=== PATIENT | female | born 1950 | race Caucasian/White ===

== ENCOUNTER 2017-01-21 11:05 | Emergency (ER) | payer MEDICARE, OTHER ==
--- NOTE | 2017-01-21 11:36 | EDM.PDOC ---
ED HPI GI/ABDOMINAL - General Chief Complaint: Abdominal Pain Stated Complaint: STOMACH Time Seen by Provider: 01/21/17 11:31 Source of Information: Reports: Patient History Limitations: Reports: No limitations - History of Present Illness INITIAL COMMENTS - FREE TEXT/NARRATIVE: HISTORY AND PHYSICAL: [66-year-old female presenting with abdominal pain for the last 2 weeks] History of Present Illness: [Patient has been taking Nexium much relief. Food intake does not change pain] Review of Systems: As per history of present illness and below otherwise all systems reviewed and negative. Past medical history: As per history of present illness and as reviewed below otherwise noncontributory. Surgical history: As per history of present illness and as reviewed below otherwise noncontributory. Social history: No reported history of drug or alcohol abuse. Family history: As per history of present illness and as reviewed below otherwise noncontributory. Physical exam: Alert and oriented. HEENT: Atraumatic, normocehpalic, pupils reactive, negative for conjunctival pallor or scleral icterus, mucous membranes moist, throat clear, neck supple, nontender, trachea midline. Lungs: Clear to auscultation, breath sounds equal bilaterally, chest non tender. Heart: S1S2, regular, negative for clicks, rubs, or JVD. Abdomen: Soft, nondistended, nontender. Negative for masses or hepatossplenmegaly. Negative for costovertebral tenderness. Pelvis: Stable nontender. Genitourinary: Deferred. Rectal: Deferred Extremities: Atraumatic, negative for cords or calf pain. Neurovascular unremarkable. Neuro: Awake, alert, oriented. Cranial nerves II through XII unremarkable. Cerebellum unremarkable. Motor and sensory unremarkable throughout. Exam nonfocal. Patient improved with the GI cocktail Diagnostics: [CBC CMP UA flat and upright] Therapeutics: [GI Cocktail Impression: [Gastritis] Plan: #1 Carafate a.c. and at bedtime #2 continue with the Nexium daily #3 followup with your provider Flori Chris NP at [facility]/ [facility]] Definitive disposition and diagnosis as appropriate pending reevaluation and review of above. 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) - Related Data Allergies/ADRs: Allergies Allergy/AdvReac Type Severity Reaction Status Date / Time Fish Containing Products Allergy Difficulty Verified 11/28/16 02:17 Breathing Iodine and Iodide Containing Allergy Difficulty Verified 11/28/16 02:17 Produc Breathing Home Meds: Home Meds ALPRAZolam [Alprazolam] 1 tab PO TID 11/28/16 [History] Carvedilol [Carvedilol] 1 tab PO BID 11/28/16 [History] FLUoxetine HCl [Fluoxetine HCl] 1 tab PO DAILY 11/28/16 [History] Triamterene/Hydrochlorothiazid [Triamterene-HCTZ 37.5-25 MG] 1 tab PO DAILY [History] Esomeprazole [NexIUM] 40 mg DAILY 01/21/17 [History] Sucralfate [Carafate] 1 gm PO WITHMEALSANDBED #160 ml 01/21/17 [Rx] Past Medical History HEENT History: Reports: None Cardiovascular History: Reports: High cholesterol, Hypertension Respiratory History: Reports: Asthma, Bronchitis, recurrent Gastrointestinal History: Reports: None Genitourinary History: Reports: None 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 Musculoskeletal History: Reports: Osteoarthritis Neurological History: Reports: None Psychiatric History: Reports: Panic attack Endocrine/Metabolic History: Reports: None Hematologic History: Reports: None Immunologic History: Reports: None Oncologic (Cancer) History: Reports: None Dermatologic History: Reports: None - Infectious Disease History Infectious Disease History: Reports: None - Past Surgical History Head Surgeries/Procedures: Reports: None HEENT Surgical History: Reports: None Cardiovascular Surgical History: Reports: None GI Surgical History: Reports: Cholecystectomy Female Surgical History: Reports: None Endocrine Surgical History: Reports: None Neurological Surgical History: Reports: None Musculoskeletal Surgical History: Reports: None Dermatological Surgical History: Reports: None Social & Family History - Family History Family Medical History: Noncontributory Neurological: Reports: CVA, Other (see below) Other Neurological Family History: runs in the family - Tobacco Use Smoking Status *Q: Never Smoker - Caffeine Use Caffeine Use: Reports: Coffee - Recreational Drug Use Recreational Drug Use: No ED ROS GENERAL - Review of Systems Review Of Systems: ROS reveals no pertinent complaints other than HPI. ED EXAM, GI/ABD - Physical Exam Exam: See Below (see dictation) Course - Vital Signs Last Recorded V/S: Last Vital Signs Temp 36.9 C 01/21/17 11:26 Pulse 81 01/21/17 11:26 Resp 18 01/21/17 11:26 BP 138/73 01/21/17 11:26 Pulse Ox 98 01/21/17 11:26 - Orders/Labs/Meds Orders: Active Orders 24 hr Category Date Time Status Abdomen 2V AP Flat Upright [CR] Stat Exams 01/21/17 11:38 Taken Labs: Laboratory Tests 01/21/17 01/21/17 Range/Units 11:47 11:47 WBC 4.60 (4.0-11.0) K/uL RBC 4.77 (4.30-5.90) M/uL Hgb 13.9 (12.0-16.0) g/dL Hct 43.0 (36.0-46.0) % MCV 90.1 (80.0-98.0) fL MCH 29.1 (27.0-32.0) pg MCHC 32.3 (31.0-37.0) g/dL RDW Std Deviation 48.4 (28.0-62.0) fl RDW Coeff of [place] 15 (11.0-15.0) % Plt Count 210 (150-400) K/uL MPV 11.60 (7.40-12.00) fL Neut % (Auto) 63.3 (48.0-80.0) % Lymph % (Auto) 20.4 (16.0-40.0) % [place] % (Auto) 14.8 (0.0-15.0) % Eos % (Auto) 1.5 (0.0-7.0) % Baso % (Auto) 0.0 (0.0-1.5) % Neut # 2.9 (1.4-5.7) K/uL Lymph # 0.9 (0.6-2.4) K/uL [place] # 0.7 (0.0-0.8) K/uL Eos # 0.1 (0.0-0.7) K/uL Baso # 0.0 (0.0-0.1) K/uL Nucleated RBC % 0.0 /100WBC Nucleated RBCs # 0 K/uL Sodium 139 (136-146) mmol/L Potassium 3.4 L (3.5-5.1) mmol/L Chloride 104 (98-110) mmol/L Carbon Dioxide 23 (21-31) mmol/L BUN 17 (6.0-23.0) mg/dL Creatinine 1.3 (0.6-1.5) mg/dL Est Cr Clr Drug Dosing 41.40 mL/min Estimated GFR (MDRD) 41.0 ml/min Glucose 106 (60-110) mg/dL Calcium 9.4 (8.8-10.8) mg/dL Total Bilirubin 0.9 (0.1-1.5) mg/dL AST 23 (5-40) IU/L ALT 22 (8-54) IU/L Alkaline Phosphatase 88 (40-150) Total Protein 7.6 (6.0-8.0) g/dL Albumin 3.8 (3.4-4.8) g/dL Globulin 3.8 H (2.0-3.5) g/dL Albumin/Globulin Ratio 1.0 L (1.3-2.8) Meds: Medications Discontinued Medications Generic Name Dose Route Start Last Admin Trade Name Freq PRN Reason Stop Dose Admin Al Hydroxide/Mg Hydroxide 15 0 ml 01/21/17 11:38 01/21/17 11:53 ml/ Lidocaine HCl 5 ml PO 01/21/17 11:39 1 each ONETIME ONE Administration Departure - Departure Time of Disposition: 12:51 Disposition: Home, Self-Care 01 Condition: good Clinical Impression: Gastritis Qualifiers: Gastritis type: unspecified gastritis Chronicity: acute Gastritis bleeding: without bleeding Qualified Code(s): K29.00 - Acute gastritis without bleeding Prescriptions: Sucralfate [Carafate] 1 gm PO WITHMEALSANDBED #160 ml Forms: ED Department Discharge Additional Instructions: The following information is given to patients seen in the emergency department who are being discharged to home. This information is to outline your options for follow-up care. We provide all patients seen in our emergency department with a follow-up referral. The need for follow-up, as well as the timing and circumstances, are variable depending upon the specifics of your emergency department visit. If you don't have a primary care physician on staff, we will provide you with a referral. We always advise you to contact your personal physician following an emergency department visit to inform them of the circumstance of the visit and for follow-up with them and/or the need for any referrals to a consulting specialist. The emergency department will also refer you to a specialist when appropriate. This referral assures that you have the opportunity for followup care with a specialist. All of these measure are taken in an effort to provide you with optimal care, which includes your followup. Under all circumstances we always encourage you to contact your private physician who remains a resource for coordinating your care. When calling for followup care, please make the office aware that this follow-up is from your recent emergency room visit. If for any reason you are refused follow-up, please contact the [facility] emergency department at and asked to speak to the emergency department charge nurse. Carafate slurry 1 g before meals and at bedtime Continue with your Nexium daily Follow up with Michelle Chris NP in one week Your medication has been electronically sent per your request to [facility] - My Orders Last 24 Hours: My Active Orders 01/21/17 11:38 Abdomen 2V AP Flat Upright [CR] Stat - Assessment/Plan Last 24 Hours: My Active Orders 01/21/17 11:38 Abdomen 2V AP Flat Upright [CR] Stat
[2017-01-21] MEDS ORDERED: Alum Hydrox/Mag Hydrox/Simeth 15 ML, Lidocaine 2% 5 ML PO ONE ×2 (11:38)
[2017-01-21 13:13] VITALS: BP 122/72
--- NOTE | 2017-01-21 16:51 | CR ---
EXAM DATE: 01/21/17 PATIENT'S AGE: 66 Patient: ELBERT ARROYO Facility: [place], [place] Site . Site : 1950 Study: XRay Abdomen [id number]/9/2017 12:16:43 PM Ordering Physician: Doctor Silveira Final Report: INDICATION: Epigastric pain TECHNIQUE: Abdomen 3 view. COMPARISON: None FINDINGS: Bowel: Bowel pattern is normal. Soft tissues: No sign of free air. No sign of soft tissue mass. No suspicious calcifications. Surgical clips right upper quadrant from prior cholecystectomy. Bones: Degenerative changes involving both hip joints. IMPRESSION: Unremarkable abdomen. Dictated by Mikel Mueller MD @ 01/21/2017 12:22:50 PM Dictated by: Mikel Mueller MD @ 01/21/2017 12:22:55 (Electronic Signature) Report Signed by Proxy and Original Signed Document filed in the Medical Record. [email or web address]
== END 2017-01-21 13:12 | disposition home or self-care (01) ==
LOC: MW.ED 11:05
DX: K29.00 Acute gastritis without bleeding (principal); I10 Essential (primary) hypertension; E78.00 Pure hypercholesterolemia, unspecified; J45.909 Unspecified asthma, uncomplicated; M19.90 Unspecified osteoarthritis, unspecified site; F41.0 Panic disorder [episodic paroxysmal anxiety]; Z90.49 Acquired absence of other specified parts of digestive tract; Z91.013 Allergy to seafood; Z91.041 Radiographic dye allergy status; Z79.899 Other long term (current) drug therapy
CPT/HCPCS: 36415; 74020; 80053; 85025; 99284; A9270; 99283

== ENCOUNTER 2017-01-23 11:27 | Emergency (ER) | payer MEDICARE, OTHER ==
[2017-01-23] MEDS ORDERED: Ondansetron 4 MG Tab.DIS PO ONE (11:50)
--- NOTE | 2017-01-23 11:57 | EDM.PDOC ---
ED HPI GI/ABDOMINAL - General Chief Complaint: Gastrointestinal Problem Stated Complaint: ABD PAIN Time Seen by Provider: 01/23/17 11:27 Source of Information: Reports: Patient History Limitations: Reports: No limitations - History of Present Illness INITIAL COMMENTS - FREE TEXT/NARRATIVE: History of present illness: [] Patient complains of left upper quadrant and epigastric pain. She was seen here on the and diagnosed with gastritis and treated with Carafate she's been taking 1/10th of the dose. Patient also complains of nausea and nonbloody diarrhea. She denies fevers or vomiting. Review of systems: As per history of present illness and below otherwise all systems reviewed and negative. Past medical history: As per history of present illness and as reviewed below otherwise noncontributory. Surgical history: As per history of present illness and as reviewed below otherwise noncontributory. Social history: No reported history of drug or alcohol abuse. Family history: As per history of present illness and as reviewed below otherwise noncontributory. Physical exam: General: Well developed, well nourished in NAD HEENT: Atraumatic, normocephalic, pupils reactive, negative for conjunctival pallor or scleral icterus, mucous membranes moist, throat clear, neck supple, nontender, trachea midline. Lungs: Clear to auscultation, breath sounds equal bilaterally, chest nontender. Heart: S1S2, regular, negative for clicks, rubs, or JVD. Abdomen: Soft, nondistended, nontender. Negative for masses or hepatosplenomegaly. Negative for costovertebral tenderness. Pelvis: Stable nontender. Genitourinary: Deferred. Rectal: Deferred. Extremities: Atraumatic, negative for cords or calf pain. Neurovascular unremarkable. Neuro: Awake, alert, oriented. Cranial nerves II through XII unremarkable. Cerebellum unremarkable. Motor and sensory unremarkable throughout. Exam nonfocal. Diagnostics: [] LFTs and lipase are normal Therapeutics: [] Patient was given 10 mLs of Carafate (instead of the 1 mL she's been takingL Impression: [] Gastritis Plan: [] Take 10 mils of Carafate as directed Zofran for nausea lobe with PMD Definitive disposition and diagnosis as appropriate pending reevaluation and review of above. - Related Data Allergies/ADRs: Allergies Allergy/AdvReac Type Severity Reaction Status Date / Time Fish Containing Products Allergy Difficulty Verified 01/23/17 11:35 Breathing Iodine and Iodide Containing Allergy Difficulty Verified 01/23/17 11:35 Produc Breathing Home Meds: Home Meds ALPRAZolam [Alprazolam] 1 tab PO ASDIRECTED 11/28/16 [History] Carvedilol [Carvedilol] 1 tab PO BID 11/28/16 [History] FLUoxetine HCl [Fluoxetine HCl] 1 tab PO DAILY 11/28/16 [History] Triamterene/Hydrochlorothiazid [Triamterene-HCTZ 37.5-25 MG] 1 tab PO DAILY [History] Esomeprazole [NexIUM] 40 mg PO DAILY 01/21/17 [History] Ondansetron HCl [Zofran] 4 mg PO Q8HR PRN #12 tablet 01/23/17 [Rx] Sucralfate [Carafate] 1 gm PO QID 01/23/17 [History] Past Medical History HEENT History: Reports: None Cardiovascular History: Reports: High cholesterol, Hypertension Respiratory History: Reports: Asthma, Bronchitis, recurrent Gastrointestinal History: Reports: None Genitourinary History: Reports: None 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: Musculoskeletal History: Reports: Osteoarthritis Neurological History: Reports: None Psychiatric History: Reports: Anxiety, Panic attack Endocrine/Metabolic History: Reports: None Hematologic History: Reports: None Immunologic History: Reports: None Oncologic (Cancer) History: Reports: None Dermatologic History: Reports: None - Infectious Disease History Infectious Disease History: Reports: None - Past Surgical History Head Surgeries/Procedures: Reports: None HEENT Surgical History: Reports: None Cardiovascular Surgical History: Reports: None GI Surgical History: Reports: Cholecystectomy Female Surgical History: Reports: None Endocrine Surgical History: Reports: None Neurological Surgical History: Reports: None Dermatological Surgical History: Reports: None Social & Family History - Family History Family Medical History: Noncontributory Neurological: Reports: CVA, Other (see below) Other Neurological Family History: runs in the family - Tobacco Use Smoking Status *Q: Never Smoker - Caffeine Use Caffeine Use: Reports: Coffee - Recreational Drug Use Recreational Drug Use: No ED ROS GENERAL - Review of Systems Review Of Systems: See Below (See history of present illness) ED EXAM, GI/ABD - Physical Exam Exam: See Below (See history of present illness) Course - Vital Signs Last Recorded V/S: Last Vital Signs Temp 36.6 C 01/23/17 11:38 Pulse 67 01/23/17 11:38 Resp 18 01/23/17 11:38 BP 137/74 01/23/17 11:38 Pulse Ox 100 01/23/17 11:38 - Orders/Labs/Meds Labs: Laboratory Tests 01/23/17 Range/Units 12:20 Sodium 139 (136-146) mmol/L Potassium 3.6 (3.5-5.1) mmol/L Chloride 103 (98-110) mmol/L Carbon Dioxide 23 (21-31) mmol/L BUN 17 (6.0-23.0) mg/dL Creatinine 1.1 (0.6-1.5) mg/dL Est Cr Clr Drug Dosing 47.10 mL/min Estimated GFR (MDRD) 49.7 ml/min Glucose 101 (60-110) mg/dL Calcium 9.3 (8.8-10.8) mg/dL Total Bilirubin 0.8 (0.1-1.5) mg/dL AST 26 (5-40) IU/L ALT 30 (8-54) IU/L Alkaline Phosphatase 86 (40-150) Total Protein 7.5 (6.0-8.0) g/dL Albumin 3.8 (3.4-4.8) g/dL Globulin 3.7 H (2.0-3.5) g/dL Albumin/Globulin Ratio 1.0 L (1.3-2.8) Lipase 26 (7-80) U/L Meds: Medications Discontinued Medications Generic Name Dose Route Start Last Admin Trade Name Freq PRN Reason Stop Dose Admin Ondansetron HCl 4 mg 01/23/17 11:50 01/23/17 11:58 Zofran Odt PO 01/23/17 11:51 4 mg ONETIME ONE Administration Departure - Departure Time of Disposition: 13:07 Disposition: Home, Self-Care 01 Condition: good Clinical Impression: Gastritis Qualifiers: Gastritis type: unspecified gastritis Chronicity: acute Gastritis bleeding: without bleeding Qualified Code(s): K29.00 - Acute gastritis without bleeding Prescriptions: Ondansetron HCl [Zofran] 4 mg PO Q8HR PRN #12 tablet PRN Reason: Nausea Forms: ED Department Discharge Additional Instructions: The following information is given to patients seen in the emergency department who are being discharged to home. This information is to outline your options for follow-up care. We provide all patients seen in our emergency department with a follow-up referral. The need for follow-up, as well as the timing and circumstances, are variable depending upon the specifics of your emergency department visit. If you don't have a primary care physician on staff, we will provide you with a referral. We always advise you to contact your personal physician following an emergency department visit to inform them of the circumstance of the visit and for follow-up with them and/or the need for any referrals to a consulting specialist. The emergency department will also refer you to a specialist when appropriate. This referral assures that you have the opportunity for follow-up care with a specialist. All of these measure are taken in an effort to provide you with optimal care, which includes your follow-up. Under all circumstances we always encourage you to contact your private physician who remains a resource for coordinating your care. When calling for follow-up care, please make the office aware that this follow-up is from your recent emergency room visit. If for any reason you are refused follow-up, please contact the [facility] Emergency Department at and asked to speak to the emergency department charge nurse. [facility] [address] [place] [phone]
[2017-01-23 13:28] VITALS: BP 132/70
== END 2017-01-23 13:26 | disposition home or self-care (01) ==
LOC: MW.ED 11:27
DX: K29.00 Acute gastritis without bleeding (principal); E78.00 Pure hypercholesterolemia, unspecified; I10 Essential (primary) hypertension; J45.909 Unspecified asthma, uncomplicated; M19.90 Unspecified osteoarthritis, unspecified site; F41.9 Anxiety disorder, unspecified; Z79.899 Other long term (current) drug therapy; Z90.49 Acquired absence of other specified parts of digestive tract; Z91.013 Allergy to seafood; Z91.041 Radiographic dye allergy status
CPT/HCPCS: 36415; 80053; 83690; 99284; A9270; 99283

== ENCOUNTER 2017-01-24 16:47 | Emergency (ER) | payer MEDICARE, OTHER ==
--- NOTE | 2017-01-24 17:16 | EDM.PDOC ---
ED HPI GI/ABDOMINAL - General Chief Complaint: Gastrointestinal Problem Stated Complaint: PT HAS STOMACH PAINS Time Seen by Provider: 01/24/17 17:16 Source of Information: Reports: Patient History Limitations: Reports: No limitations - History of Present Illness INITIAL COMMENTS - FREE TEXT/NARRATIVE: HISTORY AND PHYSICAL: [66-year-old female presenting with abdominal pain she's been in to the emergency room the last 2 days] History of Present Illness: [Have discussed her medication regimen with her she still is not taking Mylanta 4 times a day as directed SHe is taking Carafate] Review of Systems: As per history of present illness and below otherwise all systems reviewed and negative. Past medical history: As per history of present illness and as reviewed below otherwise noncontributory. Surgical history: As per history of present illness and as reviewed below otherwise noncontributory. Social history: No reported history of drug or alcohol abuse. Family history: As per history of present illness and as reviewed below otherwise noncontributory. Physical exam: Alert and oriented female, continue to question why she is having abdominal pain after multiple episodes of discussing this with her last 2 -Days. HEENT: Atraumatic, normocehpalic, pupils reactive, negative for conjunctival pallor or scleral icterus, mucous membranes moist, throat clear, neck supple, nontender, trachea midline. Lungs: Clear to auscultation, breath sounds equal bilaterally, chest non tender. Heart: S1S2, regular, negative for clicks, rubs, or JVD. Abdomen: Soft, nondistended, tender to epigastric and left upper quadrant. Negative for masses or hepatossplenmegaly. Negative for costovertebral tenderness. Extremities: Atraumatic, negative for cords or calf pain. Neurovascular unremarkable. Neuro: Awake, alert, oriented. Cranial nerves II through XII unremarkable. Cerebellum unremarkable. Motor and sensory unremarkable throughout. Exam nonfocal. Diagnostics: [] Therapeutics: []GI Cocktail Impression: [] Plan: [] Definitive disposition and diagnosis as appropriate pending reevaluation and review of above. Location: other (epigastric/ left UQ) Severity: moderate - Related Data Allergies/ADRs: Allergies Allergy/AdvReac Type Severity Reaction Status Date / Time Fish Containing Products Allergy Difficulty Verified 01/23/17 11:35 Breathing Iodine and Iodide Containing Allergy Difficulty Verified 01/23/17 11:35 Produc Breathing soy Allergy Other Verified 01/24/17 17:19 Home Meds: Home Meds ALPRAZolam [Alprazolam] 1 tab PO ASDIRECTED 11/28/16 [History] Carvedilol [Carvedilol] 1 tab PO BID 11/28/16 [History] FLUoxetine HCl [Fluoxetine HCl] 1 tab PO DAILY 11/28/16 [History] Triamterene/Hydrochlorothiazid [Triamterene-HCTZ 37.5-25 MG] 1 tab PO DAILY [History] Esomeprazole [NexIUM] 40 mg PO DAILY 01/21/17 [History] Ondansetron HCl [Zofran] 4 mg PO Q8HR PRN #12 tablet 01/23/17 [Rx] Sucralfate [Carafate] 1 gm PO QID 01/23/17 [History] Past Medical History HEENT History: Reports: None Cardiovascular History: Reports: High cholesterol, Hypertension Respiratory History: Reports: Asthma, Bronchitis, recurrent Gastrointestinal History: Reports: None Genitourinary History: Reports: None 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: Musculoskeletal History: Reports: Osteoarthritis Neurological History: Reports: None Psychiatric History: Reports: Anxiety, Panic attack Endocrine/Metabolic History: Reports: None Hematologic History: Reports: None Immunologic History: Reports: None Oncologic (Cancer) History: Reports: None Dermatologic History: Reports: None - Infectious Disease History Infectious Disease History: Reports: None - Past Surgical History Head Surgeries/Procedures: Reports: None HEENT Surgical History: Reports: None Cardiovascular Surgical History: Reports: None GI Surgical History: Reports: Cholecystectomy Female Surgical History: Reports: None Endocrine Surgical History: Reports: None Neurological Surgical History: Reports: None Dermatological Surgical History: Reports: None Social & Family History - Family History Family Medical History: Noncontributory Neurological: Reports: CVA, Other (see below) Other Neurological Family History: runs in the family - Tobacco Use Smoking Status *Q: Never Smoker - Caffeine Use Caffeine Use: Reports: Coffee - Recreational Drug Use Recreational Drug Use: No ED ROS GENERAL - Review of Systems Review Of Systems: ROS reveals no pertinent complaints other than HPI. ED EXAM, GI/ABD - Physical Exam Exam: See Below (see dictation) Course - Vital Signs Last Recorded V/S: Last Vital Signs Temp 36.9 C 01/24/17 17:16 Pulse 73 03/12/17 17:16 Resp 18 01/24/17 17:16 BP 138/83 01/24/17 17:16 Pulse Ox 100 01/24/17 17:16 - Orders/Labs/Meds Labs: Laboratory Tests 01/24/17 Range/Units 18:00 Sodium 140 (136-146) mmol/L Potassium 3.3 L (3.5-5.1) mmol/L Chloride 102 (98-110) mmol/L Carbon Dioxide 25 (21-31) mmol/L BUN 15 (6.0-23.0) mg/dL Creatinine 1.1 (0.6-1.5) mg/dL Est Cr Clr Drug Dosing 47.10 mL/min Estimated GFR (MDRD) 49.7 ml/min Glucose 103 (60-110) mg/dL Calcium 9.6 (8.8-10.8) mg/dL Total Bilirubin 0.9 (0.1-1.5) mg/dL AST 24 (5-40) IU/L ALT 30 (8-54) IU/L Alkaline Phosphatase 92 (40-150) Total Protein 8.0 (6.0-8.0) g/dL Albumin 4.0 (3.4-4.8) g/dL Globulin 4.0 H (2.0-3.5) g/dL Albumin/Globulin Ratio 1.0 L (1.3-2.8) Lipase 29 (7-80) U/L Meds: Medications Discontinued Medications Generic Name Dose Route Start Last Admin Trade Name Freq PRN Reason Stop Dose Admin Al Hydroxide/Mg Hydroxide 15 0 ml 01/24/17 17:18 01/24/17 17:28 ml/ Metoclopramide HCl 5 mg/ PO 01/24/17 17:19 1 each Lidocaine HCl 5 ml ONETIME ONE Administration Al Hydroxide/Mg Hydroxide 15 0 ml 01/24/17 18:36 ml/ Metoclopramide HCl 5 mg/ PO 01/24/17 18:37 Lidocaine HCl 5 ml ONETIME ONE Departure - Departure Time of Disposition: 18:42 Disposition: Home, Self-Care 01 Condition: good Clinical Impression: Abdominal pain Qualifiers: Abdominal location: epigastric Qualified Code(s): R10.13 - Epigastric pain Instructions: Abdominal Pain, Adult, [id number] Forms: ED Department Discharge
[2017-01-24] MEDS ORDERED: Alum Hydrox/Mag Hydrox/Simeth 15 ML, Metoclopramide 5 MG, Lidocaine 2% 5 ML PO ONE ×6 (17:18→18:36)
[2017-01-24 19:08] VITALS: BP 136/81
== END 2017-01-24 19:03 | disposition home or self-care (01) ==
LOC: MW.ED 16:47
DX: R10.13 Epigastric pain (principal); R10.12 Left upper quadrant pain; E78.00 Pure hypercholesterolemia, unspecified; I10 Essential (primary) hypertension; J45.909 Unspecified asthma, uncomplicated; M19.90 Unspecified osteoarthritis, unspecified site; F41.9 Anxiety disorder, unspecified; Z79.899 Other long term (current) drug therapy; Z90.49 Acquired absence of other specified parts of digestive tract; Z91.013 Allergy to seafood; Z91.041 Radiographic dye allergy status; Z91.018 Allergy to other foods
CPT/HCPCS: 36415; 80053; 83690; 99283; A9270

== ENCOUNTER 2017-01-28 20:17 | Emergency (ER) | payer MEDICARE, OTHER ==
--- NOTE | 2017-01-28 20:32 | EDM.PDOC ---
ED HPI GI/ABDOMINAL - General Chief Complaint: Abdominal Pain Stated Complaint: PT HAS GASTROSIS Time Seen by Provider: 01/28/17 20:29 Source of Information: Reports: Patient History Limitations: Reports: No limitations - History of Present Illness INITIAL COMMENTS - FREE TEXT/NARRATIVE: HISTORY AND PHYSICAL: [] 66-year-old female presenting with acute epigastric pain more to what she has been having. She has appointment with specialist tomorrow. History of Present Illness: [States she's been taking her medicine as prescribed She is weepy teary-eyed] Review of Systems: As per history of present illness and below otherwise all systems reviewed and negative. Past medical history: As per history of present illness and as reviewed below otherwise noncontributory. Surgical history: As per history of present illness and as reviewed below otherwise noncontributory. Social history: No reported history of drug or alcohol abuse. Family history: As per history of present illness and as reviewed below otherwise noncontributory. Physical exam: Alert with intact questions appropriately HEENT: Atraumatic, normocehpalic, pupils reactive, negative for conjunctival pallor or scleral icterus, mucous membranes moist, throat clear, neck supple, nontender, trachea midline. Lungs: Clear to auscultation, breath sounds equal bilaterally, chest non tender. Heart: S1S2, regular, negative for clicks, rubs, or JVD. Abdomen: Soft, nondistended, tender midepigastric with and without palpation. Negative for masses or hepatossplenmegaly. Negative for costovertebral tenderness. Extremities: Atraumatic, negative for cords or calf pain. Neurovascular unremarkable. Neuro: Awake, alert, oriented. Cranial nerves II through XII unremarkable. Cerebellum unremarkable. Motor and sensory unremarkable throughout. Exam nonfocal. Diagnostics: [] Therapeutics: [GI cocktail with Reglan] Impression: [Gastritis] Plan: [Home continue taking medications as prescribed Make sure you keep appointment tomorrow with the specialist as you need an EGD] Take your Nexium twice daily keep your appointment tomorrow at 11 Definitive disposition and diagnosis as appropriate pending reevaluation and review of above. - Related Data Allergies/ADRs: Allergies Allergy/AdvReac Type Severity Reaction Status Date / Time Fish Containing Products Allergy Difficulty Verified 01/28/17 20:27 Breathing Iodine and Iodide Containing Allergy Difficulty Verified 01/28/17 20:27 Produc Breathing soy Allergy Other Verified 01/28/17 20:27 Home Meds: Home Meds ALPRAZolam [Alprazolam] 1 tab PO ASDIRECTED 11/28/16 [History] Carvedilol [Carvedilol] 1 tab PO BID 11/28/16 [History] FLUoxetine HCl [Fluoxetine HCl] 1 tab PO DAILY 11/28/16 [History] Triamterene/Hydrochlorothiazid [Triamterene-HCTZ 37.5-25 MG] 1 tab PO DAILY [History] Esomeprazole [NexIUM] 40 mg PO DAILY 01/21/17 [History] Ondansetron HCl [Zofran] 4 mg PO Q8HR PRN #12 tablet 01/23/17 [Rx] Sucralfate [Carafate] 1 gm PO QID 01/23/17 [History] Past Medical History HEENT History: Reports: None Cardiovascular History: Reports: High cholesterol, Hypertension Respiratory History: Reports: Asthma, Bronchitis, recurrent Gastrointestinal History: Reports: None Genitourinary History: Reports: None 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: Musculoskeletal History: Reports: Osteoarthritis Neurological History: Reports: None Psychiatric History: Reports: Anxiety, Panic attack Endocrine/Metabolic History: Reports: None Hematologic History: Reports: None Immunologic History: Reports: None Oncologic (Cancer) History: Reports: None Dermatologic History: Reports: None - Infectious Disease History Infectious Disease History: Reports: None - Past Surgical History Head Surgeries/Procedures: Reports: None HEENT Surgical History: Reports: None Cardiovascular Surgical History: Reports: None GI Surgical History: Reports: Cholecystectomy Female Surgical History: Reports: None Endocrine Surgical History: Reports: None Neurological Surgical History: Reports: None Dermatological Surgical History: Reports: None Social & Family History - Family History Family Medical History: Noncontributory Neurological: Reports: CVA, Other (see below) Other Neurological Family History: runs in the family - Tobacco Use Smoking Status *Q: Never Smoker - Caffeine Use Caffeine Use: Reports: Coffee - Recreational Drug Use Recreational Drug Use: No ED ROS GENERAL - Review of Systems Review Of Systems: ROS reveals no pertinent complaints other than HPI. ED EXAM, GI/ABD - Physical Exam Exam: See Below (see dictation) Course - Vital Signs Last Recorded V/S: Last Vital Signs Temp 36.9 C 01/28/17 20:29 Pulse 86 01/28/17 20:29 Resp 16 01/28/17 20:29 BP 155/72 H 01/28/17 20:29 Pulse Ox 96 01/28/17 20:29 - Orders/Labs/Meds Meds: Medications Discontinued Medications Generic Name Dose Route Start Last Admin Trade Name Salome PRN Reason Stop Dose Admin Al Hydroxide/Mg Hydroxide 15 0 ml 01/28/17 20:28 01/28/17 20:43 ml/ Metoclopramide HCl 5 mg/ PO 01/28/17 20:29 25 each Lidocaine HCl 5 ml ONETIME ONE Administration Famotidine 20 mg 01/28/17 20:32 01/28/17 20:46 Pepcid PO 01/28/17 20:33 Not Given ONETIME ONE Departure - Departure Time of Disposition: 21:22 Disposition: Home, Self-Care 01 Condition: good Clinical Impression: Gastroenteritis Forms: ED Department Discharge Additional Instructions: The following information is given to patients seen in the emergency department who are being discharged to home. This information is to outline your options for follow-up care. We provide all patients seen in our emergency department with a follow-up referral. The need for follow-up, as well as the timing and circumstances, are variable depending upon the specifics of your emergency department visit. If you don't have a primary care physician on staff, we will provide you with a referral. We always advise you to contact your personal physician following an emergency department visit to inform them of the circumstance of the visit and for follow-up with them and/or the need for any referrals to a consulting specialist. The emergency department will also refer you to a specialist when appropriate. This referral assures that you have the opportunity for followup care with a specialist. All of these measure are taken in an effort to provide you with optimal care, which includes your followup. Under all circumstances we always encourage you to contact your private physician who remains a resource for coordinating your care. When calling for followup care, please make the office aware that this follow-up is from your recent emergency room visit. If for any reason you are refused follow-up, please contact the [facility] emergency department at and asked to speak to the emergency department charge nurse.
[2017-01-28] MEDS: Alum Hydrox/Mag Hydrox/Simeth 15 ML, Metoclopramide 5 MG, Lidocaine 2% 5 ML PO ONE ×3 (20:43)
[2017-01-28] MEDS: Famotidine 20 MG Tab PO ONE (20:46)
[2017-01-28 22:18] VITALS: BP 133/62
== END 2017-01-28 21:42 | disposition home or self-care (01) ==
LOC: MW.ED 20:17
DX: K29.70 Gastritis, unspecified, without bleeding (principal); E78.00 Pure hypercholesterolemia, unspecified; I10 Essential (primary) hypertension; M19.90 Unspecified osteoarthritis, unspecified site; Z88.6 Allergy status to analgesic agent; Z88.8 Allergy status to other drugs, medicaments and biological substances; Z91.013 Allergy to seafood; Z79.899 Other long term (current) drug therapy; Z90.89 Acquired absence of other organs; Z98.890 Other specified postprocedural states
CPT/HCPCS: 99283; A9270

== ENCOUNTER → 2017-01-29 | Outpatient (CLI) | payer MEDICARE, OTHER | LOC: MW.CHGS 08:00 | PROVIDERS: ATTEND Surgery | DX: R10.9 Unspecified abdominal pain (principal); R19.4 Change in bowel habit | CPT/HCPCS: 99204 ==

== ENCOUNTER 2017-02-25 18:55 | Emergency (ER) | payer MEDICARE, OTHER ==
[2017-02-25] MEDS ORDERED: Sodium Chloride 0.9% 1,000 ML IV ONE (19:38)
[2017-02-25] MEDS ORDERED: Pantoprazole 40 MG Vial IVPUSH ONE (19:38)
[2017-02-25] MEDS ORDERED: LORazepam 1 MG Tab PO ONE (19:39)
[2017-02-25] MEDS ORDERED: Ketorolac 30 MG/ML SDV IVPUSH ONE (19:39)
[2017-02-25] MEDS ORDERED: Sodium Chloride 0.9% 10 ML Syringe FLUSH PRN (19:39)
[2017-02-25] MEDS ORDERED: Alum Hydrox/Mag Hydrox/Simeth 15 ML, Metoclopramide 5 MG, Lidocaine 2% 5 ML PO ONE ×3 (19:39)
[2017-02-25] MEDS ORDERED: Sodium Chloride 0.9% 2.5 ML Syringe FLUSH PRN (19:39)
--- NOTE | 2017-02-25 19:46 | EDM.PDOC ---
ED HPI GENERAL MEDICAL PROBLEM - General Chief Complaint: Gastrointestinal Problem Stated Complaint: STOMACH PAIN Time Seen by Provider: 02/25/17 19:30 - History of Present Illness INITIAL COMMENTS - FREE TEXT/NARRATIVE: HISTORY AND PHYSICAL: History of present illness: The patient is a 66-year-old female who has been in the emergency department here 4 prior times in January with epigastric pain and who underwent an endoscopy with an MD in [facility] 2 weeks ago which she was told was relatively normal and represents tonight with epigastric/mid upper abdominal complaints which is similar to all of her prior visits. According to the patient she was scheduled to have her endoscopy here and opted to do it in [place] and she has not discussed her symptoms with the network account manager there. She has a history of a cholecystectomy as well as anxiety and was supposed to have a colonoscopy performed as well but due to a low potassium that had to be rescheduled. Patient states that she has had 2-3 loose stools before and after the endoscopy and that is not new and the stools are not black or bloody. She said she had the pain both before the endoscopy as well as after but today it seemed worse. She bought [id number] Gaviscon but has not tried it. She says she's been eating and drinking but not very much due to the discomfort. She has no lower abdominal pain no flank pain no chest pain or shortness of breath no fevers chills nausea or vomiting. Review of systems: As per history of present illness and below otherwise all systems reviewed and negative. Past medical history: As per history of present illness and as reviewed below otherwise noncontributory. Surgical history: As per history of present illness and as reviewed below otherwise noncontributory. Social history: No reported history of drug or alcohol abuse. Family history: As per history of present illness and as reviewed below otherwise noncontributory. Physical exam: General: Well-developed well-nourished female who is anxious in the room and tearful but is nontoxic and speaking clearly and easily. She moves without difficulty. HEENT: Atraumatic, normocephalic, pupils reactive, negative for conjunctival pallor or scleral icterus, mucous membranes moist, throat clear, neck supple, nontender, trachea midline. Lungs: Clear to auscultation, breath sounds equal bilaterally, chest nontender. Heart: S1S2, regular, negative for clicks, rubs, or JVD. Abdomen: Soft, nondistended, there are hypoactive bowel sounds and there is tenderness just above the umbilicus on deep palpation without rebound or guarding and the remainder of the abdomen exam is within normal limits without tenderness rebound or guarding. Negative for masses or hepatosplenomegaly. Negative for costovertebral tenderness. Pelvis: Stable nontender. Genitourinary: Deferred. Rectal: Deferred. Extremities: Atraumatic, negative for cords or calf pain. Neurovascular unremarkable. Neuro: Awake, alert, oriented. Cranial nerves II through XII unremarkable. Cerebellum unremarkable. Motor and sensory unremarkable throughout. Exam nonfocal. Diagnostics: CBC CMP amylase lipase UA CT scan of the abdomen and pelvis Therapeutics: IV fluids Toradol Protonix GI cocktail Ativan Patient and family at bedside were aware of all testing results and the patient feels much improved. I've advised to avoid caffeine and to push potassium rich foods. I also advised her to call her network account manager tomorrow to seek advice on care plan. I offered the patient medications for home and she has declined. I've also advised her to take no [id number] aspirin nonsteroidals and alleve. Impression: Upper abdominal pain acute on chronic stable Definitive disposition and diagnosis as appropriate pending reevaluation and review of above. Abdominal Pain Score (Numeric/FACES): 8 - Related Data Allergies Allergy/AdvReac Type Severity Reaction Status Date / Time Fish Containing Products Allergy Difficulty Verified 02/25/17 19:00 Breathing Iodine and Iodide Containing Allergy Difficulty Verified 02/25/17 19:00 Produc Breathing soy Allergy Difficulty Verified 02/25/17 19:00 Breathing shelfish derived products Allergy Hives Uncoded 02/25/17 19:29 Home Meds: Home Meds Carvedilol [Carvedilol] 3.125 mg PO BID 11/28/16 [History] FLUoxetine HCl [Fluoxetine HCl] 40 mg PO DAILY 11/28/16 [History] Sucralfate [Carafate] 1 gm PO QID PRN 01/23/17 [History] ALPRAZolam [Xanax] 0.5 mg PO TID 02/25/17 [History] Albuterol [Ventolin HFA] 2 puff INH Q4HR PRN 02/25/17 [History] Mag Hydrox/Al Hydrox/Simeth [Maalox Maximum Strength Susp] 30 ml PO DAILY PRN [History] Ondansetron HCl [Zofran] 4 mg PO Q6HR PRN 02/25/17 [History] Pantoprazole Sodium [Protonix] 40 mg PO DAILY 02/25/17 [History] busPIRone [Buspar] 5 mg PO BID 02/25/17 [History] Past Medical History HEENT History: Reports: None Cardiovascular History: Reports: High cholesterol, Hypertension Respiratory History: Reports: Asthma, Bronchitis, recurrent Gastrointestinal History: Reports: None Genitourinary History: Reports: None 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: Musculoskeletal History: Reports: Osteoarthritis Neurological History: Reports: None Psychiatric History: Reports: Anxiety, Panic attack Endocrine/Metabolic History: Reports: None Hematologic History: Reports: None Immunologic History: Reports: None Oncologic (Cancer) History: Reports: None Dermatologic History: Reports: None - Infectious Disease History Infectious Disease History: Reports: Chicken pox - Past Surgical History Head Surgeries/Procedures: Reports: None HEENT Surgical History: Reports: None Cardiovascular Surgical History: Reports: None GI Surgical History: Reports: Cholecystectomy Female Surgical History: Reports: None Endocrine Surgical History: Reports: None Neurological Surgical History: Reports: None Dermatological Surgical History: Reports: None Social & Family History - Family History Family Medical History: Noncontributory Neurological: Reports: CVA, Other (see below) Other Neurological Family History: runs in the family - Tobacco Use Smoking Status *Q: Never Smoker Second Hand Smoke Exposure: No - Caffeine Use Caffeine Use: Reports: None - Recreational Drug Use Recreational Drug Use: No ED ROS GENERAL - Review of Systems Review Of Systems: ROS reveals no pertinent complaints other than HPI. ED EXAM, GENERAL - Physical Exam Exam: See Below (See dictation) Course - Vital Signs Last Recorded V/S: Last Vital Signs Temp 36.6 C 02/25/17 19:01 Pulse 73 02/25/17 19:01 Resp 17 02/25/17 19:01 BP 139/66 02/25/17 19:01 Pulse Ox 96 02/25/17 19:01 - Orders/Labs/Meds Orders: Active Orders 24 hr Category Date Time Status Abdomen Pelvis wo Cont [CT] Stat Exams 02/25/17 19:38 Taken Sodium Chloride 0.9% [Saline Flush] Med 02/25/17 19:39 Active 10 ml FLUSH ASDIRECTED PRN Sodium Chloride 0.9% [Saline Flush] Med 02/25/17 19:39 Active 2.5 ml FLUSH ASDIRECTED PRN Saline Lock Insert [OM.PC] Stat Oth 02/25/17 19:38 Ordered Medication Orders Sodium Chloride (Saline Flush) 10 ml FLUSH ASDIRECTED PRN PRN Reason: Keep Vein Open Sodium Chloride (Saline Flush) 2.5 ml FLUSH ASDIRECTED PRN PRN Reason: Keep Vein Open Labs: Laboratory Tests 02/25/17 02/25/17 Range/Units 20:02 20:02 WBC 5.16 (4.0-11.0) K/uL RBC 4.17 L (4.30-5.90) M/uL Hgb 12.1 (12.0-16.0) g/dL Hct 37.9 (36.0-46.0) % MCV 90.9 (80.0-98.0) fL MCH 29.0 (27.0-32.0) pg MCHC 31.9 (31.0-37.0) g/dL RDW Std Deviation 51.0 (28.0-62.0) fl RDW Coeff of [place] 15 (11.0-15.0) % Plt Count 227 (150-400) K/uL MPV 11.30 (7.40-12.00) fL Neut % (Auto) 51.3 (48.0-80.0) % Lymph % (Auto) 34.9 (16.0-40.0) % [place] % (Auto) 10.1 (0.0-15.0) % Eos % (Auto) 3.3 (0.0-7.0) % Baso % (Auto) 0.4 (0.0-1.5) % Neut # (Auto) 2.7 (1.4-5.7) K/uL Lymph # (Auto) 1.8 (0.6-2.4) K/uL [place] # (Auto) 0.5 (0.0-0.8) K/uL Eos # (Auto) 0.2 (0.0-0.7) K/uL Baso # (Auto) 0.0 (0.0-0.1) K/uL Nucleated RBC % 0.0 /100WBC Nucleated RBCs # 0 K/uL Sodium 142 (136-146) mmol/L Potassium 3.2 L (3.5-5.1) mmol/L Chloride 108 (98-110) mmol/L Carbon Dioxide 24 (21-31) mmol/L BUN 8 (6.0-23.0) mg/dL Creatinine 0.8 (0.6-1.5) mg/dL Est Cr Clr Drug Dosing 64.76 mL/min Estimated GFR (MDRD) > 60.0 ml/min Glucose 97 (60-110) mg/dL Calcium 8.8 (8.8-10.8) mg/dL Total Bilirubin 0.7 (0.1-1.5) mg/dL AST 21 (5-40) IU/L ALT 19 (8-54) IU/L Alkaline Phosphatase 72 (40-150) Total Protein 6.8 (6.0-8.0) g/dL Albumin 3.3 L (3.4-4.8) g/dL Globulin 3.5 (2.0-3.5) g/dL Albumin/Globulin Ratio 0.9 L (1.3-2.8) Amylase 44 (10-90) U/L Lipase 19 (7-80) U/L Meds: Medications Generic Name Dose Route Start Last Admin Trade Name Freq PRN Reason Stop Dose Admin Sodium Chloride 10 ml 02/25/17 19:39 Saline Flush FLUSH ASDIRECTED PRN Keep Vein Open Sodium Chloride 2.5 ml 02/25/17 19:39 Saline Flush FLUSH ASDIRECTED PRN Keep Vein Open Discontinued Medications Generic Name Dose Route Start Last Admin Trade Name Salome PRN Reason Stop Dose Admin Al Hydroxide/Mg Hydroxide 15 0 ml 02/25/17 19:39 02/25/17 20:30 ml/ Metoclopramide HCl 5 mg/ PO 02/25/17 19:40 15 each Lidocaine HCl 5 ml ONETIME ONE Administration Sodium Chloride 1,000 mls @ 999 mls/hr 02/25/17 19:38 02/25/17 20:32 Normal Saline IV 02/25/17 20:38 999 mls/hr STAT ONE Administration Ketorolac Tromethamine 30 mg 02/25/17 19:39 02/25/17 20:32 Toradol IVPUSH 02/25/17 19:40 30 mg ONETIME ONE Administration Lorazepam 1 mg 02/25/17 19:39 02/25/17 20:31 Ativan PO 02/25/17 19:40 1 mg ONETIME ONE Administration Pantoprazole Sodium 80 mg 02/25/17 19:38 02/25/17 20:32 Protonix Iv IVPUSH 02/25/17 19:39 80 mg .BOLUS ONE Administration Potassium Chloride 40 meq 02/25/17 21:00 Klor-Con M20 PO 02/25/17 21:01 ONETIME ONE Departure - Departure Time of Disposition: 21:05 Disposition: Home, Self-Care 01 Condition: good Clinical Impression: Abdominal pain, Chronic abdominal pain Referrals: PCP,None [Primary Care Provider] - Forms: ED Department Discharge Additional Instructions: The following information is given to patients seen in the emergency department who are being discharged to home. This information is to outline your options for follow-up care. We provide all patients seen in our emergency department with a follow-up referral. The need for follow-up, as well as the timing and circumstances, are variable depending upon the specifics of your emergency department visit. If you don't have a primary care physician on staff, we will provide you with a referral. We always advise you to contact your personal physician following an emergency department visit to inform them of the circumstance of the visit and for follow-up with them and/or the need for any referrals to a consulting specialist. The emergency department will also refer you to a specialist when appropriate. This referral assures that you have the opportunity for followup care with a specialist. All of these measure are taken in an effort to provide you with optimal care, which includes your followup. Under all circumstances we always encourage you to contact your private physician who remains a resource for coordinating your care. When calling for followup care, please make the office aware that this follow-up is from your recent emergency room visit. If for any reason you are refused follow-up, please contact the [facility] emergency department at and ask to speak to the emergency department charge nurse. [facility] Primary care- Internal Medicine and Family [address] [address] [place] [address] [facility] [place] [address] Please avoid caffeine and spicy foods and eat more potassium rich foods. Please use the medication you have at home for any discomfort and please call your network account manager in [place] tomorrow to advise him/her of your problems and seek advice. He can also followup with your provider at [place] or with one of our family keep your appointment on Wednesday with your provider at [place] if you prefer to wait. Return to ER as needed and as discussed - My Orders Last 24 Hours: My Active Orders 02/25/17 19:38 Abdomen Pelvis wo Cont [CT] Stat Saline Lock Insert [OM.PC] Stat 02/25/17 19:39 Sodium Chloride 0.9% [Saline Flush] 10 ml FLUSH ASDIRECTED PRN Sodium Chloride 0.9% [Saline Flush] 2.5 ml FLUSH ASDIRECTED PRN - Assessment/Plan Last 24 Hours: My Active Orders 02/25/17 19:38 Abdomen Pelvis wo Cont [CT] Stat Saline Lock Insert [OM.PC] Stat 02/25/17 19:39 Sodium Chloride 0.9% [Saline Flush] 10 ml FLUSH ASDIRECTED PRN Sodium Chloride 0.9% [Saline Flush] 2.5 ml FLUSH ASDIRECTED PRN
[2017-02-25 20:39] LABS: CHLORIDE,CL 108 mmol/L (98-110); SODIUM,NA 142 mmol/L (136-146)
[2017-02-25] MEDS ORDERED: Potassium Chloride 20 MEQ Tab.ER PO ONE (21:00)
[2017-02-26 01:07] VITALS: BP 133/88
--- NOTE | 2017-02-26 11:25 | CT ---
EXAM DATE: 02/25/17 PATIENT'S AGE: 66 Patient: ELBERT ARROYO Facility: [place], [place] Site . Site : 1950 Study: CT Abdomen/Pelvis [id number]/13/2017 8:34:07 PM Ordering Physician: Jeaneth Mann Final Report: INDICATION: Upper abdominal pain. Patient had endoscopy 2 weeks ago with polyps removed. CT ABDOMEN AND PELVIS WITHOUT CONTRAST TECHNIQUE: Multidetector CT imaging was performed through the abdomen and pelvis without intravenous contrast administration. Coronal and sagittal reconstructions were generated. COMPARISON: None. FINDINGS: Lower chest: Small right pleural effusion and associated minimal compressive atelectasis at the right lung base. Liver: Within normal limits. Gallbladder and bile ducts: Status post cholecystectomy. No biliary dilation identified. Pancreas: Unremarkable. Spleen: Normal. Adrenals: No nodules or masses. Kidneys, ureters, and urinary bladder: No renal masses or hydronephrosis. No bladder mass or definite wall thickening. Gastrointestinal tract: Normal caliber bowel without wall thickening. The appendix is normal. Vascular structures: Normal caliber abdominal aorta with mild atherosclerotic calcification. Peritoneum: No free air, abscess, or significant free fluid. Lymph nodes: No pathologically enlarged nodes identified. Reproductive organs: Small calcifications in the uterine fundus likely representing degenerated fibroids. Bones: Mild multilevel spondylosis. IMPRESSION: 1. No acute intra-abdominal abnormality identified. No cause for the patient`s symptoms is evident. 2. Small right pleural effusion. 3. Status post cholecystectomy. 4. Additional nonacute findings as detailed above. TOMASZ MÉNDEZ MD [employer] Dictated by Mukesh Méndez MD @ 02/25/2017 8:45:04 PM Dictated by: Mukesh Méndez MD @ 02/25/2017 20:46:11 (Electronic Signature) Report Signed by Proxy and Original Signed Document filed in the Medical Record. [facility]
== END 2017-02-25 21:31 | disposition home or self-care (01) ==
LOC: MW.ED 18:55
DX: R10.13 Epigastric pain (principal); F41.9 Anxiety disorder, unspecified; E78.00 Pure hypercholesterolemia, unspecified; I10 Essential (primary) hypertension; J45.909 Unspecified asthma, uncomplicated; M19.90 Unspecified osteoarthritis, unspecified site; Z90.49 Acquired absence of other specified parts of digestive tract; Z91.013 Allergy to seafood; Z88.8 Allergy status to other drugs, medicaments and biological substances; Z79.899 Other long term (current) drug therapy
CPT/HCPCS: 36415; 74176; 80053; 82150; 83690; 85025; 96361; 96374; 96375; 99284; A9270; C9113; J1885; J7040

== ENCOUNTER 2017-03-02 18:36 | Emergency (ER) | payer MEDICARE, OTHER ==
[2017-03-02] MEDS ORDERED: LORazepam 2 MG/ML MDV IM ONE (19:27)
--- NOTE | 2017-03-02 19:34 | EDM.PDOC ---
ED HPI GENERAL MEDICAL PROBLEM - General Chief Complaint: Behavioral/Psych Stated Complaint: MEMORY Time Seen by Provider: 03/02/17 19:13 - History of Present Illness INITIAL COMMENTS - FREE TEXT/NARRATIVE: HISTORY AND PHYSICAL: History of present illness: Patient is a 66-year-old female with a well known history to the emergency department of subacute/chronic, pain for which she has been worked up repeatedly old here and at other institutions. She is a known history of anxiety and has presented before to see me with anxiety being a component of her complaints. She is been prescribed Xanax 0.5mg TID for home by her provider and she states that she only takes it when she needs it rather than as prescribed. She saw her provider at [facility] yesterday for followup of her abdominal issues and stated to her at that time that she was having tearfulness and feeling like her emotions are all confused. She denies any memory issues with me but states that her emotions are jumbled up, she is not confused out what's going on in the world. She knows where she is and how to get around and she does not feel like that is a problem. She has no motor or sensory changes no recent falls no headaches and no other systemic complaints. She actually declined that she is having any abdominal pain right now. She says she just feels that her emotions are out of control and she can't stop crying. She discussed this with her provider yesterday who is attempting to try to get her into counseling and the patient plans on going to [facility] in the morning to do an intake to try to streamline that process. The patient states she took one half of a tablet of the Xanax at approximately 2 PM per providers instructions but when I asked her about taking her regular dosing 3 times a day of the full tablet she says she did not take any earlier at all. The patient denies any suicidal ideation and when I even mentioned potential inpatient evaluation she was very adamant that that was not an issue. Review of systems: As per history of present illness and below otherwise all systems reviewed and negative. Past medical history: As per history of present illness and as reviewed below otherwise noncontributory. Surgical history: As per history of present illness and as reviewed below otherwise noncontributory. Social history: No reported history of drug or alcohol abuse. Family history: As per history of present illness and as reviewed below otherwise noncontributory. Physical exam: General: Well-developed well-nourished female who is nontoxic and tearful on my evaluation with speaking clearly and easily is not exhibiting any signs of any cognitive deficits HEENT: Atraumatic, normocephalic, pupils reactive, negative for conjunctival pallor or scleral icterus, mucous membranes moist, throat clear, neck supple, nontender, trachea midline. Lungs: Clear to auscultation, breath sounds equal bilaterally, chest nontender. Heart: S1S2, regular, negative for clicks, rubs, or JVD. Abdomen: Soft, nondistended, nontender. NABS Psych: The patient seems tearful but not grossly depressed and very anxious. She is forthcoming about her problems but seems to have issues with articulating why she is tearful. She is not exhibiting any suicidal or homicidal ideation Genitourinary: Deferred. Rectal: Deferred. Extremities: Atraumatic, negative for cords or calf pain. Neurovascular unremarkable. Neuro: Awake, alert, oriented. Cranial nerves II through XII unremarkable. Cerebellum unremarkable. Motor and sensory unremarkable throughout. Exam nonfocal. Diagnostics: [] Therapeutics: Ativan IM I Again discussed with the patient that she needs to go to [facility] in the morning and start the process of getting counseling. I would be happy to give her something here to help get her through the evening but that she should be taking her prescription as prescribed rather than when necessary. She states understanding and I've advised her that if anything changes that she is welcome to return here. I have offered her metabolic workup and CT and she declines at this time as she has had labs done recently and she is not exhibiting any stroke symptoms.. She understands that I cannot offer her any outpatient connection other than what she has and that she will have to proceed tomorrow morning to pursue that herself. She is here with her Impression: Anxiety/emotional issues Definitive disposition and diagnosis as appropriate pending reevaluation and review of above. - Related Data Allergies Allergy/AdvReac Type Severity Reaction Status Date / Time Fish Containing Products Allergy Difficulty Verified 03/02/17 18:57 Breathing Iodine and Iodide Containing Allergy Difficulty Verified 03/02/17 18:57 Produc Breathing soy Allergy Difficulty Verified 03/02/17 18:57 Breathing shelfish derived products Allergy Hives Uncoded 03/02/17 18:57 Home Meds: Home Meds Carvedilol [Carvedilol] 3.125 mg PO BID 11/28/16 [History] FLUoxetine HCl [Fluoxetine HCl] 40 mg PO DAILY 11/28/16 [History] Sucralfate [Carafate] 1 gm PO QID PRN 01/23/17 [History] ALPRAZolam [Xanax] 0.5 mg PO TID 02/25/17 [History] Albuterol [Ventolin HFA] 2 puff INH Q4HR PRN 02/25/17 [History] Mag Hydrox/Al Hydrox/Simeth [Maalox Maximum Strength Susp] 30 ml PO DAILY PRN [History] Ondansetron HCl [Zofran] 4 mg PO Q6HR PRN 02/25/17 [History] Pantoprazole Sodium [Protonix] 40 mg PO DAILY 02/25/17 [History] busPIRone [Buspar] 5 mg PO BID 02/25/17 [History] Past Medical History HEENT History: Reports: None Cardiovascular History: Reports: High cholesterol, Hypertension Respiratory History: Reports: Asthma, Bronchitis, recurrent Gastrointestinal History: Reports: None Genitourinary History: Reports: None 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: Musculoskeletal History: Reports: Osteoarthritis Neurological History: Reports: None Psychiatric History: Reports: Anxiety, Panic attack Endocrine/Metabolic History: Reports: None Hematologic History: Reports: None Immunologic History: Reports: None Oncologic (Cancer) History: Reports: None Dermatologic History: Reports: None - Infectious Disease History Infectious Disease History: Reports: Chicken pox - Past Surgical History Head Surgeries/Procedures: Reports: None HEENT Surgical History: Reports: None Cardiovascular Surgical History: Reports: None GI Surgical History: Reports: Cholecystectomy Female Surgical History: Reports: None Endocrine Surgical History: Reports: None Neurological Surgical History: Reports: None Dermatological Surgical History: Reports: None Social & Family History - Family History Family Medical History: Noncontributory Neurological: Reports: CVA, Other (see below) Other Neurological Family History: runs in the family - Tobacco Use Smoking Status *Q: Never Smoker Second Hand Smoke Exposure: No - Caffeine Use Caffeine Use: Reports: None - Recreational Drug Use Recreational Drug Use: No ED ROS GENERAL - Review of Systems Review Of Systems: ROS reveals no pertinent complaints other than HPI. ED EXAM, GENERAL - Physical Exam Exam: See Below (See dictation) Course - Vital Signs Last Recorded V/S: Last Vital Signs Temp 37.4 C 03/02/17 18:57 Pulse 75 03/02/17 18:57 Resp 18 03/02/17 18:57 BP 163/84 H 03/02/17 18:57 Pulse Ox 98 03/02/17 18:57 - Orders/Labs/Meds Orders: Active Orders 24 hr Category Date Time Status LORazepam [Ativan] Med 03/02/17 19:27 Once 2 mg IM ONETIME ONE Departure - Departure Time of Disposition: 19:34 Disposition: Home, Self-Care 01 Condition: good Clinical Impression: Anxiety Forms: ED Department Discharge Additional Instructions: The following information is given to patients seen in the emergency department who are being discharged to home. This information is to outline your options for follow-up care. We provide all patients seen in our emergency department with a follow-up referral. The need for follow-up, as well as the timing and circumstances, are variable depending upon the specifics of your emergency department visit. If you don't have a primary care physician on staff, we will provide you with a referral. We always advise you to contact your personal physician following an emergency department visit to inform them of the circumstance of the visit and for follow-up with them and/or the need for any referrals to a consulting specialist. The emergency department will also refer you to a specialist when appropriate. This referral assures that you have the opportunity for followup care with a specialist. All of these measure are taken in an effort to provide you with optimal care, which includes your followup. Under all circumstances we always encourage you to contact your private physician who remains a resource for coordinating your care. When calling for followup care, please make the office aware that this follow-up is from your recent emergency room visit. If for any reason you are refused follow-up, please contact the [facility] emergency department at and ask to speak to the emergency department charge nurse. [address] [place] [address] Please take your Xanax as prescribed per your provider from [facility] and recontact her tomorrow if they're continuing to have issues. Please go to [facility] in the morning as we discussed 2 do an intake with them and to help a connection for counseling. Return to ER as needed and as discussed - My Orders Last 24 Hours: My Active Orders 03/02/17 19:27 LORazepam [Ativan] 2 mg IM ONETIME ONE - Assessment/Plan Last 24 Hours: My Active Orders 03/02/17 19:27 LORazepam [Ativan] 2 mg IM ONETIME ONE
[2017-03-02 21:22] VITALS: BP 136/69
== END 2017-03-02 19:51 | disposition home or self-care (01) ==
LOC: MW.ED 18:36
DX: F41.9 Anxiety disorder, unspecified (principal); I10 Essential (primary) hypertension; E78.00 Pure hypercholesterolemia, unspecified; J45.909 Unspecified asthma, uncomplicated; Z90.49 Acquired absence of other specified parts of digestive tract; Z79.899 Other long term (current) drug therapy; Z91.013 Allergy to seafood; Z91.018 Allergy to other foods; Z88.8 Allergy status to other drugs, medicaments and biological substances
CPT/HCPCS: 96372; 99283; J2060; 99284

== ENCOUNTER 2017-03-09 10:17 | Emergency (ER) | payer MEDICARE, OTHER ==
--- NOTE | 2017-03-09 11:10 | EDM.PDOC ---
ED HPI Behavioral Health - General Chief Complaint: Behavioral/Psych Stated Complaint: ANXIETY/DEPRESSION Time Seen by Provider: 03/09/17 10:40 Source of Information: Reports: Patient Exam Limitations: Reports: No limitations - History of Present Illness INITIAL COMMENTS - FREE TEXT/NARRATIVE: Presents with her . The patient states and her concurs that she was admitted to the [facility] unit on Thursday, March 02, 2017 with a diagnosis of anxiety exacerbation. The patient and her state that she had her medications adjusted but did not receive any counseling there. She was set up however for outpatient counseling here and [place]. She also had has an appointment with her primary care provider Helena Chris on Wednesday, March 15, 2017. Since her discharge on Wednesday she has been unable to do anything at home as she cries the entire day, feels anxious and worries about absolutely everything including simple tasks. She was placed on a regimen of Paxil 10 mg once daily and clonazepam 1 mg at bedtime. - Related Data Allergies Allergy/AdvReac Type Severity Reaction Status Date / Time Fish Containing Products Allergy Difficulty Verified 03/09/17 10:24 Breathing Iodine and Iodide Containing Allergy Difficulty Verified 03/09/17 10:24 Produc Breathing soy Allergy Difficulty Verified 03/09/17 10:24 Breathing shelfish derived products Allergy Hives Uncoded 03/02/17 18:57 Home Medications: Home Meds Carvedilol [Carvedilol] 6.25 mg PO BID 11/28/16 [History] FLUoxetine HCl [Fluoxetine HCl] 40 mg PO DAILY 11/28/16 [History] Sucralfate [Carafate] 1 gm PO QID PRN 01/23/17 [History] Albuterol [Ventolin HFA] 2 puff INH Q4HR PRN 02/25/17 [History] Mag Hydrox/Al Hydrox/Simeth [Maalox Maximum Strength Susp] 30 ml PO DAILY PRN [History] Ondansetron HCl [Zofran] 4 mg PO Q6HR PRN 02/25/17 [History] Pantoprazole Sodium [Protonix] 40 mg PO DAILY 02/25/17 [History] busPIRone [Buspar] 5 mg PO BID 02/25/17 [History] ClonazePAM [KlonoPIN] 1 mg PO DAILY 03/09/17 [History] Esomeprazole Magnesium 40 mg PO DAILY 03/09/17 [History] PARoxetine [Paxil] 10 mg PO DAILY 03/09/17 [History] Potassium Chloride 20 mg PO DAILY 03/09/17 [History] Headache Pain Score (Numeric/FACES): 4 Past Medical History HEENT History: Reports: None Cardiovascular History: Reports: High cholesterol, Hypertension Respiratory History: Reports: Asthma, Bronchitis, recurrent Gastrointestinal History: Reports: None Genitourinary History: Reports: None 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: Musculoskeletal History: Reports: Osteoarthritis Neurological History: Reports: None Psychiatric History: Reports: Anxiety, Panic attack Endocrine/Metabolic History: Reports: None Hematologic History: Reports: None Immunologic History: Reports: None Oncologic (Cancer) History: Reports: None Dermatologic History: Reports: None - Infectious Disease History Infectious Disease History: Reports: Chicken pox - Past Surgical History Head Surgeries/Procedures: Reports: None HEENT Surgical History: Reports: None Cardiovascular Surgical History: Reports: None GI Surgical History: Reports: Cholecystectomy Female Surgical History: Reports: None Endocrine Surgical History: Reports: None Neurological Surgical History: Reports: None Dermatological Surgical History: Reports: None Social & Family History - Family History Family Medical History: Noncontributory Neurological: Reports: CVA, Other (see below) Other Neurological Family History: runs in the family - Tobacco Use Smoking Status *Q: Never Smoker Second Hand Smoke Exposure: No - Caffeine Use Caffeine Use: Reports: None - Recreational Drug Use Recreational Drug Use: No ED ROS GENERAL - Review of Systems Review Of Systems: ROS reveals no pertinent complaints other than HPI. ED EXAM, BEHAVIORAL HEALTH - Physical Exam Exam: See Below Exam Limited By: No limitations General Appearance: alert, moderate distress (crying due to anxiety) Ears: normal external exam Nose: normal inspection Throat/Mouth: Normal inspection Head: atraumatic, normocephalic Neck: normal inspection Respiratory/Chest: no respiratory distress, lungs clear Cardiovascular: normal peripheral pulses Extremities: normal inspection Neurological: alert Psychiatric: alert, tearful, other (Anxious and worried) Skin Exam: Warm, Dry, Intact, Normal color, No rash COURSE, BEHAVIORAL HEALTH COMP - Course Vital Signs: Last Vital Signs Temp 37.0 C 03/09/17 10:21 Pulse 75 03/09/17 10:21 Resp 22 H 03/09/17 10:21 BP 186/85 H 03/09/17 10:21 Pulse Ox 96 03/09/17 10:21 Departure - Departure Time of Disposition: 11:10 Disposition: Home, Self-Care 01 Condition: fair Clinical Impression: Anxiety Referrals: PCP,None [Primary Care Provider] - Lisa Chris NP [Ordering Only Provider] - Forms: ED Department Discharge Additional Instructions: 1. Please followup with your primary care provider as previously scheduled on Wednesday. 2. Please followup with your counselor on March 22 as previously scheduled. 3. Take your Nexium in the morning before breakfast 4. Take your potassium with your morning meal. Have your potassium level checked when you see Lisa Chris. 5. Take your Paxil once daily as directed 6. For your acute anxiety: Xanax (Alprazolam) 0.25mg tabs 1-4 tabs up to four times daily as needed. Suggest starting 2 tabs three times a day scheduled and then fill in as needed for increasing anxiety. Your will help you regulate this medication during the acute state. Remember the top prescribing dose is 4mg daily. You have enough tablets until you see your primary provider on Wednesday. 7. When you get home, take 2-4 0.25mg tablets of Xanax, have a cup of tea and sit down with your feet up and watch your TV shows.
[2017-03-09 11:37] VITALS: BP 140/74
== END 2017-03-09 11:38 | disposition home or self-care (01) ==
LOC: MW.ED 10:17
DX: F41.9 Anxiety disorder, unspecified (principal); I10 Essential (primary) hypertension; E78.00 Pure hypercholesterolemia, unspecified; J45.909 Unspecified asthma, uncomplicated; Z90.49 Acquired absence of other specified parts of digestive tract; Z79.899 Other long term (current) drug therapy; Z91.013 Allergy to seafood; Z91.041 Radiographic dye allergy status; Z91.018 Allergy to other foods
CPT/HCPCS: 99283

== ENCOUNTER → 2017-03-22 | Outpatient (CLI) | payer MEDICARE, OTHER | PROVIDERS: ATTEND Nurse Practitioner Family | DX: F43.10 Post-traumatic stress disorder, unspecified (principal); F33.0 Major depressive disorder, recurrent, mild | CPT/HCPCS: 90792 ==